=== PATIENT | female | born 1975 | race Caucasian/White ===

== ENCOUNTER 2016-10-03 01:04 | Emergency (ER) | payer BC ==
[~2016-10-03] VITALS: Ht 170.2 cm; Wt 66.0 kg
[2016-10-03] MEDS ORDERED: RALTEGRAVIR 400MG TABLET PO ONE (01:30)
[2016-10-03] MEDS ORDERED: TENOFOVIR 300MG TABLET PO ONE (01:30)
[2016-10-03] MEDS ORDERED: EMTRICITABINE 200MG CAPSULE PO ONE (01:30)
[2016-10-03 02:21] LABS: BASOPHILS % 0.9 % (0.0-2.0); EOSINOPHILS % 1.7 % (0.0-5.0); HEMATOCRIT. 37.9 % (36.0-48.0); HEMOGLOBIN. 12.8 g/dL (12.0-16.0); LYMPHOCYTES % 27.8 % (20.0-50.0); MEAN CORPUSCULAR HEMOGLOBIN 31.9 pg (28.0-32.0); MEAN CORPUSCULAR VOLUME 94.6 fL (81.0-99.0); MEAN PLATELET VOLUME 7.7 fl (7.4-10.4); NEUTROPHILS % 63.6 % (40.0-76.0); PLATELET 305 x1000/uL (130-400); RED CELL DISTRIBUTION WIDTH 14.2 % (11.6-14.6)
[2016-10-03 02:23] VITALS: BP 121/80
[2016-10-03 02:25] LABS: CHLORIDE 105 mEq/L (98-107)
[2016-10-03 02:35] LABS: CARBON DIOXIDE 26 mEq/L (21-32)
[2016-10-03 02:46] LABS: HCG SCREEN NEGATIVE
[2016-10-03 12:42] LABS: HEPATITIS B SURFACE ANTIGEN NEGATIVE
[2016-10-03 13:09] LABS: HEPATITIS B CORE AB IGM NEGATIVE
[2016-10-03 13:11] LABS: HEPATITIS A AB IGM NEGATIVE (NEGATIVE)
[2016-10-03 14:07] LABS: HEPATITIS B SURFACE AB > 1000.0 mIU/mL
[2016-10-03 14:10] LABS: HEPATITIS B SURFACE ANTIGEN NEGATIVE
[2016-10-03 14:38] LABS: HEPATITIS C VIR.AB 0.03 INDEXVAL (0.00-0.80)
== END 2016-10-03 07:03 | disposition home or self-care (01) ==
LOC: ER 01:04
DX: Z77.21 Contact with and (suspected) exposure to potentially hazardous body fluids (principal)
CPT/HCPCS: 36415; 80053; 84703; 85025; 86592; 86703; 86705; 86709; 86803; 87186; 87340; 99284